=== PATIENT | female | born 1970 | race Caucasian/White ===

== ENCOUNTER → 2017-10-19 | Outpatient (CLI) | payer OTHER ==
[~2017-10-19] MED LIST: ALBU90I INH; AMLO5 PO; ASCO500 PO; ASPI325 PO; AZIT250 PO; CRUTCH4 USE; DOCU100 PO; ERYSTE250 PO; Ferrous Sulfat325 M2 PO; HYDACE5 PO; HYDACE5325 PO; HYDCHL25 PO; HYDGUAL120 PO; LISI5 PO; METO50 PO; NEOPOLHYDS OT; PRED20 PO; PROG100
== END ==
LOC: LAB SHORT 15:53 → LAB 15:53
PROVIDERS: Nurse Practitioner Family
DX: Z00.00 Encounter for general adult medical examination without abnormal findings (principal)
CPT/HCPCS: 87624; G0145

== ENCOUNTER → 2024-02-17 | Outpatient (CLI) | payer BC ==
[~2024-02-17] MED LIST changes: +ALBU90OI6 INH; +Advair Hfa 230-12 GM; +CEPH500 PO; +FERRO-TIME325 MG PO; +Flonase 0.05% N16 GM; +KETO10 PO; +METO25ER PO; +MOTION RELIEF25 MG PO; +Ultram50 MG PO; +Zofran8 MG PO
[2024-02-29 08:05] LABS: HPV HIGH RISK BY TMA Not Detected; HPV SOURCE Cervical
== END ==
LOC: LAB 17:08 → LAB SHORT 17:08
PROVIDERS: Family Medicine
DX: Z12.4 Encounter for screening for malignant neoplasm of cervix (principal)
CPT/HCPCS: 87624; G0123

== ENCOUNTER → 2024-02-24 | Outpatient (CLI) | payer BC | END | disposition home or self-care (01) | LOC: LAB 12:34 → LAB SHORT 12:34 | DX: R30.0 Dysuria (principal) | CPT/HCPCS: 87077; 87086; 87186 ==

== ENCOUNTER → 2024-04-28 | Outpatient (CLI) | payer BC | LOC: LAB SHORT 16:36 → LAB 16:36 | DX: M62.830 Muscle spasm of back (principal); J20.9 Acute bronchitis, unspecified | CPT/HCPCS: 87077; 87086; 87186 ==

== ENCOUNTER → 2024-11-25 | Outpatient (CLI) | payer OTHER | LOC: LAB SHORT 17:14 → LAB 17:14 | DX: R30.0 Dysuria (principal) | CPT/HCPCS: 87077; 87086; 87186 ==